=== PATIENT | male | born 1970 | race Asian ===

== ENCOUNTER 2018-05-23 11:54 | Emergency (ER) | payer SELFPAY ==
[~2018-05-23] VITALS: Ht 177.8 cm; Wt 56.7 kg
--- NOTE | 2018-05-23 11:55 | NUR ---
PT TAKEN TO BED 8 VIA WHEELCHAIR
--- NOTE | 2018-05-23 12:00 | NUR ---
brought in by zoroastrian friend and c/o persistant dizziness, headaches, chills, generalized weakness x >3 wks full clear speech, right facial asymmetry ---has been seen by pmd as per pt for same complaint hx--dizziness rx---meclizine, omeprazole, tylenol, compazine
[2018-05-23 12:02] VITALS: BP 117/77
--- NOTE | 2018-05-23 14:10 | NUR ---
XRAY AT BEDSIDE
[2018-05-23 14:17] LABS: BASOPHILS % (AUTO) 0.6 % (0.0-2.0); EOSINOPHILS # (AUTO) 0.1 K/uL (0-0.4); EOSINOPHILS % (AUTO) 0.8 % (0.0-4.0); HEMATOCRIT 49.3 % (36-52); HEMOGLOBIN 17.2 g/dL (12.0-18.0); LYMPHOCYTES # (AUTO) 1.6 K/uL (2.0-11.5); LYMPHOCYTES % (AUTO) 18.2 % (20.5-51.1); MEAN CORPUSCULAR HEMOGLOBIN 31 pg (27-31); MEAN CORPUSCULAR HGB CONC 35 g/dL (33-37); MEAN CORPUSCULAR VOLUME 88.4 fL (80-94); MONOCYTES # (AUTO) 0.6 K/uL (0.8-1.0); MONOCYTES % (AUTO) 7.2 % (1.7-9.3); NEUTROPHILS # (AUTO) 6.3 K/uL (1.8-7.7); NEUTROPHILS % (AUTO) 73.2 % (42.2-75.2); PLATELET COUNT (AUTO) 336 K/uL (140-450); RED BLOOD CELL COUNT(AUTO) 5.57 MIL/uL (4.20-6.10); RED CELL DISTRIBUTION WIDTH 14.1 % (11.6-13.7); WHITE BLOOD COUNT (AUTO) 8.6 K/uL (4.8-10.8)
[2018-05-23 14:32] LABS: ANION GAP 15.6 (8-16); CREATININE 1.1 mg/dL (0.7-1.3); POTASSIUM 3.6 mmol/L (3.5-5.1); TOTAL BILIRUBIN 1.8 mg/dL (0.0-1.0)
--- NOTE | 2018-05-23 14:41 | NUR ---
Patient being evaluated by physician at bedside.
--- NOTE | 2018-05-23 14:58 | NUR ---
AWAKE, ALERT, ORIENTED X4 PT WITH AT BEDSIDE, NO ACUTE DISTRESS NOTED, ON MONITOR, VSS, WAITING FOR TEST RESULTS, WILL CONTINUE TO MONITOR.
--- NOTE | 2018-05-23 15:20 | NUR ---
PT NOTIFIED OF BEING ACCEPTED TO [facility], CONSENT SIGNED
--- NOTE | 2018-05-23 16:02 | NUR ---
Patient to be transferred to [facility]. Is being transferred due to need for higher level of care. Receiving facility has accepting physician and available space. ER physician has signed transfer form. Patient or responsible constitution party has agreed to transfer and signed form. Patient belongings inventoried and will be sent with patient. Copy of nursing notes, lab reports, EKG, Physicians Orders and X-rays to be sent with patient. Report called to JOANNA Saldivar at receiving facility. [facility] ambulance service has been called for transfer. ETA is 30 min.
--- NOTE | 2018-05-23 16:48 | NUR ---
[facility] ARRIVED FOR TRANSPORT OF PT TO [facility]
--- NOTE | 2018-05-23 16:56 | NUR ---
Report given to [facility], all documentatiions given and signed. VSS stable.
[2018-05-23 16:59] VITALS: BP 120/87
== END 2018-05-23 16:56 | disposition short-term general hospital (02) ==
LOC: MED 11:54
DX: G91.9 Hydrocephalus, unspecified (principal); G51.0 Bell's palsy
CPT/HCPCS: 36415; 70450; 71045; 80053; 82948; 85025; 85610; 85730; 86790; 93005; 99291; Q0092; 99285